=== PATIENT | male | born 1960 | race Caucasian/White ===

== ENCOUNTER 2022-11-07 13:56 | Observation (INO) | payer OTHER ==
[2022-11-07] VITALS (9 sets, daily range): BP systolic 91–130; BP diastolic 51–71
[~2022-11-07] VITALS: Ht 175.3 cm; Wt 114.1 kg
[2022-11-07] MEDS ORDERED: NS 500 ML IV ONE ×2 (14:45→15:20)
[2022-11-07 14:46] LABS: BASO # 0.1 10^3/uL (0.0-0.2); BASO % 0.7 % (0.0-1.0); EOS # 0.3 10^3/uL (0.0-0.5); EOS % 2.8 % (0.0-3.0); HEMATOCRIT 40.1 % (42.0-52.0); LYMPH # 1.7 10^3/uL (1.5-5.0); LYMPH % 19.1 % (24.0-44.0); MEAN CORPUSCULAR HEMOGLOBIN 31.7 pg (27.0-33.0); MEAN CORPUSCULAR HGB CONC 34.9 g/dl (32.0-36.5); MEAN CORPUSCULAR VOLUME 90.9 fl (80.0-96.0); MONO # 0.6 10^3/uL (0.0-0.8); MONO % 7.1 % (2.0-8.0); NEUTROPHILS # 6.3 10^3/uL (1.5-8.5); NEUTROPHILS % 69.9 % (36.0-66.0); PLATELET COUNT, AUTOMATED 241 10^3/uL (150-450); RED BLOOD COUNT 4.41 10^6/uL (4.30-6.10)
[2022-11-07 15:04] LABS: INR 1.03; PARTIAL THROMBOPLASTIN TIME 25.8 SECONDS (24.8-34.2); PROTHROMBIN TIME 13.7 SECONDS (12.5-14.5)
[2022-11-07 15:14] LABS: CALCIUM LEVEL 8.6 MG/DL (8.3-10.6); CREATININE FOR GFR 1.63 MG/DL (0.70-1.30); GLOMERULAR FILTRATION RATE 45.9 (>49); POTASSIUM SERUM 4.2 MMOL/L (3.5-5.1)
[2022-11-07 15:20] LABS: RSV AMPLIFICATION NEGATIVE (NEGATIVE)
[2022-11-07 15:28] LABS: ALBUMIN 3.7 G/DL (3.2-5.2); BILIRUBIN,DIRECT 0.2 MG/DL (<0.4); BILIRUBIN,TOTAL 0.7 MG/DL (0.3-1.2); MAGNESIUM LEVEL 1.7 MG/DL (1.8-2.4); TOTAL PROTEIN 5.8 G/DL (5.7-8.2)
[2022-11-07] MEDS ORDERED: NS 1,000 ML IV ONE (16:05)
[2022-11-07] MEDS ORDERED: ALPR0.25 PO (16:25)
[2022-11-07] MEDS ORDERED: LANS-67 PO (16:25)
[2022-11-07] MEDS ORDERED: CARV40CA PO (16:25)
[2022-11-07] MEDS ORDERED: FENO54TA2 PO (16:25)
[2022-11-07] MEDS ORDERED: ALLO100T PO (16:25)
[2022-11-07] MEDS ORDERED: TAMS1CAP17 PO (16:25)
[2022-11-07] MEDS ORDERED: ENTR1TAB7 PO (16:25)
[2022-11-07] MEDS ORDERED: ROSU10TA6 PO (16:25)
[2022-11-07] MEDS ORDERED: FINA5TAB2 PO (16:25)
[2022-11-07] MEDS ORDERED: ASPI81TA26 PO (16:26)
[2022-11-07] MEDS ORDERED: VITMTA PO (16:26)
[2022-11-07] MEDS ORDERED: HOME MED LIST COMPLETE! XX SCH (16:30)
[2022-11-07] MEDS ORDERED: ALPRAZolam 0.25 MG TAB PO PRN (16:50)
[2022-11-07] MEDS ORDERED: MAG SULF 1GM/100ML (MAG RUN) 1 GM in IV 1 EA IV ONE (17:05)
[2022-11-07 17:30] LABS: CHOLESTEROL RISK RATIO 2.88 (<5); HDL CHOLESTEROL 40.5 MG/DL (>40); LDL CHOLESTEROL 52.1 MG/DL (<100); NON-HDL-C 76.5 MG/DL
[2022-11-07 17:58] LABS: HEMOGLOBIN A1c 5.3 % (4.0-6.0)
[2022-11-07] MEDS: HEPARIN SOD (PORCINE) 5000UNITS/ML 1ML VIAL/SYRINGE SC SCH (22:00)
[2022-11-07] MEDS: FENOFIBRATE 48MG TABLET (TRICOR) PO SCH (22:03)
[2022-11-07] MEDS: PANTOPRAZOLE 40MG TAB (PROTONIX) PO SCH (22:03)
[2022-11-08 04:00] VITALS: BP 110/68
[2022-11-08] MEDS: HEPARIN SOD (PORCINE) 5000UNITS/ML 1ML VIAL/SYRINGE SC SCH (05:21)
[2022-11-08 05:51] LABS: HEMATOCRIT 35.4 % (42.0-52.0); HEMOGLOBIN 12.3 g/dl (13.5-17.5); MEAN CORPUSCULAR HEMOGLOBIN 31.9 pg (27.0-33.0); MEAN CORPUSCULAR HGB CONC 34.7 g/dl (32.0-36.5); MEAN CORPUSCULAR VOLUME 91.9 fl (80.0-96.0); PLATELET COUNT, AUTOMATED 191 10^3/uL (150-450); RED BLOOD COUNT 3.85 10^6/uL (4.30-6.10); WHITE BLOOD COUNT 7.5 10^3/uL (4.0-10.0)
[2022-11-08 06:22] LABS: BLOOD UREA NITROGEN 19 MG/DL (9-23); CALCIUM LEVEL 8.4 MG/DL (8.3-10.6); CARBON DIOXIDE LEVEL 23 MMOL/L (20-31); CHLORIDE LEVEL 112 MMOL/L (98-107); CREATININE FOR GFR 1.14 MG/DL (0.70-1.30); GLOMERULAR FILTRATION RATE > 60.0 (>49); GLUCOSE, FASTING 89 MG/DL (74-106); MAGNESIUM LEVEL 1.9 MG/DL (1.8-2.4); POTASSIUM SERUM 3.9 MMOL/L (3.5-5.1); SODIUM LEVEL 142 MMOL/L (136-145)
[2022-11-08 07:38] VITALS: BP 107/61
[2022-11-08] MEDS: FINASTERIDE 5MG TAB PO SCH (09:00)
[2022-11-08] MEDS ORDERED: ASPIRIN 81MG ENTERIC TABLET PO SCH (09:00)
[2022-11-08] MEDS: MULTIVITAMINS/MINERALS THERAP 1 TAB PO SCH (09:00)
[2022-11-08] MEDS: ROSUVASTATIN 10 MG TAB (CRESTOR) PO SCH (09:00)
[2022-11-08] MEDS: allopurinoL 100 MG TAB PO SCH (09:00)
[2022-11-08] MEDS ORDERED: ELIQ5TAB PO (10:45)
[2022-11-08 12:00] VITALS: BP 136/75
[2022-11-08] MEDS: APIXABAN 5 MG TAB (ELIQUIS) PO SCH ×2 (13:32→20:14)
[2022-11-08 15:36] VITALS: BP 118/58
[2022-11-08 20:00] VITALS: BP 130/73
[2022-11-08] MEDS: PANTOPRAZOLE 40MG TAB (PROTONIX) PO SCH (20:14)
[2022-11-08] MEDS: FENOFIBRATE 48MG TABLET (TRICOR) PO SCH (20:15)
[2022-11-08 23:44] VITALS: BP 129/70
[2022-11-09 03:36] VITALS: BP 130/81
[2022-11-09 07:18] VITALS: BP 130/79
[2022-11-09] MEDS: APIXABAN 5 MG TAB (ELIQUIS) PO SCH (08:18)
[2022-11-09] MEDS: allopurinoL 100 MG TAB PO SCH (08:18)
[2022-11-09] MEDS: FINASTERIDE 5MG TAB PO SCH (08:18)
[2022-11-09] MEDS: ROSUVASTATIN 10 MG TAB (CRESTOR) PO SCH (08:18)
[2022-11-09] MEDS: MULTIVITAMINS/MINERALS THERAP 1 TAB PO SCH (08:19)
== END 2022-11-09 12:37 | disposition home or self-care (01) ==
LOC: M ED 13:56 → M ED INP 16:39 → M PCU 21:00
PROVIDERS: ADMIT Internal Medicine; ATTEND Internal Medicine
DX: R47.81 Slurred speech (principal); R47.01 Aphasia; R42 Dizziness and giddiness; H53.8 Other visual disturbances; R29.700 NIHSS score 0; I48.0 Paroxysmal atrial fibrillation; I50.9 Heart failure, unspecified; N17.9 Acute kidney failure, unspecified; E83.42 Hypomagnesemia; I11.0 Hypertensive heart disease with heart failure; M10.9 Gout, unspecified; I25.10 Atherosclerotic heart disease of native coronary artery without angina pectoris; G47.33 Obstructive sleep apnea (adult) (pediatric); Z85.528 Personal history of other malignant neoplasm of kidney; Z90.5 Acquired absence of kidney; Z85.820 Personal history of malignant melanoma of skin; F41.9 Anxiety disorder, unspecified; E78.5 Hyperlipidemia, unspecified; Z79.899 Other long term (current) drug therapy; Z79.82 Long term (current) use of aspirin
CPT/HCPCS: 36415; 70450; 70544; 70551; 71045; 76775; 80047; 80048; 80061; 80076; 82550; 83036; 83605; 83735; 84484; 85025; 85027; 85610; 85730; 86850; 86900; 86901; 87040; 87631; 93005; 93041; 93306; 94760; 96365; 99285; J3475; S0138

== ENCOUNTER 2024-09-12 13:30 | Emergency (ER) | payer OTHER ==
[~2024-09-12] VITALS: Ht 172.7 cm; Wt 114.8 kg
[~2024-09-12 13:30] MED LIST: ALLO100T PO; ALPR0.25 PO; ASPI81TA26 PO; CARV40CA PO; ELIQ5TAB PO; ENTR1TAB7 PO; FENO54TA2 PO; FINA5TAB2 PO; LANS-67 PO; ROSU10TA61 PO; TAMS1CAP17 PO; VITMTA PO
[2024-09-12 13:59] LABS: BASO # 0.1 10^3/uL (0.0-0.2); BASO % 0.9 % (0.0-1.0); EOS # 0.3 10^3/uL (0.0-0.5); EOS % 3.2 % (0.0-3.0); HEMATOCRIT 42.7 % (42.0-52.0); HEMOGLOBIN 15.5 g/dl (13.5-17.5); LYMPH % 31.1 % (24.0-44.0); MEAN CORPUSCULAR HEMOGLOBIN 32.4 pg (27.0-33.0); MEAN CORPUSCULAR HGB CONC 36.3 g/dl (32.0-36.5); MEAN CORPUSCULAR VOLUME 89.1 fl (80.0-96.0); MONO # 0.9 10^3/uL (0.0-0.8); MONO % 9.4 % (2.0-8.0); NEUTROPHILS # 5.2 10^3/uL (1.5-8.5); PLATELET COUNT, AUTOMATED 231 10^3/uL (150-450); RED BLOOD COUNT 4.79 10^6/uL (4.30-6.10); WHITE BLOOD COUNT 9.5 10^3/uL (4.0-10.0)
[2024-09-12 14:23] LABS: CK-MB VALUE MASS 1.1 NG/ML (<3.6)
[2024-09-12 14:26] LABS: BLOOD UREA NITROGEN 16 MG/DL (9-23); CALCIUM LEVEL 9.1 MG/DL (8.3-10.6); CARBON DIOXIDE LEVEL 24 MMOL/L (20-31); CHLORIDE LEVEL 106 MMOL/L (98-107); GLOMERULAR FILTRATION RATE > 60.0 (>49); GLUCOSE, FASTING 133 MG/DL (74-106); SODIUM LEVEL 141 MMOL/L (136-145)
[2024-09-12 14:27] LABS: CPK CREATINE PHOSPHOKINASE 121 U/L (46-171)
[2024-09-12 14:56] LABS: MAGNESIUM LEVEL 1.7 MG/DL (1.8-2.4)
[2024-09-12 15:01] LABS: THYROID STIMULATING HORMONE 2.111 uIU/ML (0.55-4.78)
[2024-09-12] MEDS: MAG SULF 1GM/100ML (MAG RUN) 1 GM in IV 1 EA IV ONE (15:39)
[2024-09-12 16:50] VITALS: O2SAT 98
[2024-09-12] MEDS ORDERED: METO1TAB32 PO (16:57)
[2024-09-12] MEDS ORDERED: SLOWTAB2 PO (16:57)
[2024-09-12 17:00] VITALS: BP 136/85
[2024-09-12 17:06] VITALS: TEMP 97.3
== END 2024-09-12 17:16 | disposition home or self-care (01) ==
LOC: EDBD 13:30 → M ED 13:30
DX: I47.19 Other supraventricular tachycardia (principal); E83.42 Hypomagnesemia; I44.4 Left anterior fascicular block; I50.22 Chronic systolic (congestive) heart failure; I11.0 Hypertensive heart disease with heart failure; E78.5 Hyperlipidemia, unspecified; N40.0 Benign prostatic hyperplasia without lower urinary tract symptoms; G47.33 Obstructive sleep apnea (adult) (pediatric); F10.10 Alcohol abuse, uncomplicated; Z86.73 Personal history of transient ischemic attack (TIA), and cerebral infarction without residual deficits; Z79.01 Long term (current) use of anticoagulants; Z79.899 Other long term (current) drug therapy
CPT/HCPCS: 71045; 80047; 80048; 82550; 82553; 83735; 84443; 84484; 85025; 93005; 93041; 94760; 96365; 96375; 99285; J0153; J3475